=== PATIENT | female | born 1955 ===

== ENCOUNTER 2020-02-27 04:26 | Day surgery (SDC) | payer MEDICARE ==
[2020-02-26 12:47] VITALS: BMI 28.5
[2020-02-27] MEDS ORDERED: PROPOFOL 20 ML ONE ×4 (09:21→10:29)
[2020-02-27] MEDS ORDERED: ceFAZolin SODIUM 1 GM VIAL ONE ×2 (09:21→10:29)
[2020-02-27] MEDS ORDERED: DEXAMETHASONE SOD PHOSPHATE 4 MG/1 ML VIAL ONE ×2 (09:21→10:29)
[2020-02-27] MEDS ORDERED: MIDAZOLAM HCL 2 MG/2 ML SINGLE DOSE VIAL ONE ×2 (09:21→10:29)
[2020-02-27] MEDS ORDERED: LIDOCAINE HCL/PF 2% SDV 5ML VIAL ONE (10:29)
[2020-02-27] MEDS ORDERED: ceFAZolin SODIUM 1 GM VIAL IVPB ONE (10:41)
[2020-02-27] MEDS ORDERED: LIDOCAINE HCL 2% (20ML MULTI-DOSE VIAL) ONE (10:48)
[2020-02-27] MEDS ORDERED: LIDOCAINE HCL 2% (50ML VIAL) NR ONE (10:56)
--- NOTE | 2020-02-27 11:26 | OP ---
Operative Note - Note: Operative Date: 02/27/20 Pre-Operative Diagnosis: Stress incontinence Operation: Sling placement Findings: KATHERYN Post-Operative Diagnosis: Same as Pre-op Surgeon: Hussein Kaye MD. Anesthesia: MAC Estimated Blood Loss (mls): 10
--- NOTE | 2020-02-27 12:01 | OP ---
DATE OF OPERATION: 02/27/2020 PREOPERATIVE DIAGNOSIS: Stress incontinence. POSTOPERATIVE DIAGNOSIS: Stress incontinence. PROCEDURE: Midurethral sling placement. HISTORY: This is a very pleasant 64-year-old female with a history of stress incontinence. Preop evaluation revealed a leak point pressure of approximately 22. After discussing treatment options, patient elected to undergo above-stated procedure. Risks and benefits of treatment, alternative treatments discussed in detail including de stefan urgency and frequency and urge incontinence. BREIF OPERATIVE NOTE: Patient brought to the operating room, placed in the supine position. Once general anesthesia was administered, the patient was transferred to the dorsal lithotomy position, prepped and draped in standard sterile fashion. Intravenous antibiotics were given. At this time a Chauhan was placed to suction. Approximately 6 mL of Pitressin in saline as well as 8 mL of lidocaine were injected in the periurethral area. An incision was made with a 15-blade scalpel. The anterior vaginal wall was dissected free from periurethral tissue. A space was formed by the obturator foramen using sharp and blunt dissection. At this time an Altis sling was put in in the standard fashion and anchors were well anchored through the obturator foramen. The sling was assured to be in normal position and not kinked. There was no evidence of any bleeding, approximately 10 mL blood loss in total. At this time the incision was closed using a 3-0 running Vicryl. The Chauhan was left to straight drainage noted to be draining clear urine. LUIZA DENTON M.D. [id number]
[2020-02-27] MEDS ORDERED: oxyCODONE HCL 5 MG TABLET PO PRN ×2 (12:02)
[2020-02-27] MEDS ORDERED: ONDANSETRON 4 MG/2 ML VIAL IVPUSH PRN (12:02)
[2020-02-27] MEDS ORDERED: LACTATED RINGERS SOLUTION 1,000 ML IV SCH (12:15)
[2020-02-27 14:42] VITALS: BP 88/52; PULSE 67; TEMP 97.3
== END 2020-02-27 14:50 | disposition home or self-care (01) ==
LOC: JASU-SURG 04:26
PROVIDERS: ATTEND Urology
PROC: 0TSD0ZZ Reposition Urethra, Open Approach (ICD-10-PCS; principal; 2020-02-27 10:00)
DX: N39.3 Stress incontinence (female) (male) (principal)
CPT/HCPCS: 57288; C1771; 94760